=== PATIENT | female | born 1990 | race Two or more races ===

== ENCOUNTER 2018-03-26 16:09 | Emergency (ER) | payer MEDICAID ==
--- NOTE | 2018-03-26 16:38 | EDPHY ---
H & P Stated Complaint: left knee hematoma from fall 1 month ago, started bleeding today Time Seen by Provider: 03/26/18 16:37 - Personal History LMP (Females 10-55): 15-21 Days Ago Current Tetanus/Diphtheria Vaccine: Unsure Current Tetanus Diphtheria and Acellular Pertussis (TDAP): Unsure - Medical/Surgical History Hx Asthma: No Hx Chronic Respiratory Disease: No Hx Diabetes: No Hx Cardiac Disease: No Hx Renal Disease: No Hx Cirrhosis: No Hx Alcoholism: No Hx HIV/AIDS: No Hx Splenectomy or Spleen Trauma: No Other PMH: brain tumor - Social History Smoking Status: Never smoked Constitutional: Initial Vital Signs Temperature (C) 36.6 C 03/26/18 16:15 Heart Rate 84 03/26/18 16:15 Respiratory Rate 18 03/26/18 16:15 Blood Pressure 128/71 H 03/26/18 16:15 O2 Sat (%) 99 03/26/18 16:15 O2 Delivery Mode Room Air Allergies/Adverse Reactions: No Known Allergies Allergy (Verified 03/26/18 16:13) Home Medications: Medication Instructions Recorded Bledsoe 5/325 (*) 03/26/18 Tetralisal 03/26/18 Medical Decision Making ED Course/Re-evaluation: CHIEF COMPLAINT: Wound on knee HISTORY OF PRESENT ILLNESS: The patient is a 27 y/o female complaining of persistent wound on her left knee. One month ago on 02/24 she fell off a ladder and injured both knees. She's had a slowly improving hematoma with overlying abrasions and puncture wound on her left knee. Yesterday the wound re-opened and has been oozing. She was evaluated at [facility] yesterday and had a knee CT, but is unsure of the results. She has been walking normally and denies other complaints. No fever. She is normally healthy and denies any prior issues with wound healing. REVIEW OF SYSTEMS: A 10 point review of systems was performed and is negative with the exception of the elements mentioned in the history of present illness. PHYSICAL EXAM: HR, BP, O2 Sat, RR. Temp noted General Appearance: Alert, well hydrated, appropriate, and non-toxic appearing. Head: Atraumatic without scalp tenderness or obvious injury Eyes: Pupils equal, round, reactive to light and accommodation, EOMI, no trauma , no injection. Nose: Atraumatic, no rhinorrhea, clear. Throat: Mucus membranes moist. Neck: Supple. Respiratory: No retractions, no distress, no wheezes, and no accessory muscle use. Lungs are clear to auscultation bilaterally. Cardiovascular: Regular rate and rhythm, no murmurs, rubs, or gallops. Good capillary refill all extremities. Gastrointestinal: Abdomen is soft, nontender, non-distended, no masses, no rebound, no guarding, no peritoneal signs. Musculoskeletal: Normal active ROM of all extremities. Dime-sized puncture wound on anteromedial left knee with some subcutaneous fat exposed. No streaking , warmth, or surrounding skin breakdown. Healing abrasions on both knees. Neurological: Alert, appropriate, and interactive. The patient has non-focal cranial nerves, motor, sensory, and cerebellar exam. Skin: No rashes, good turgor, no nodules on palpation. Past medical history: Denies Past surgical history: Denies Family history: Noncontributory Social history: Lives in [place]. Not employed. DIFFERENTIAL DIAGNOSIS: The differential diagnosis for the patient's knee injury included but was not limited to puncture wound, non-healing wound, fracture, ligamentous injury, contusion, muscular strain, and meniscus injury. MEDICAL DECISION MAKING: This is a normally healthy 27 y/o female who presents with a small puncture wound on her left knee secondary to a fall 1 month ago. There is a small amount of exposed subcutaneous fat, but this is non-suturable at this point. No evidence of infection. She most likely had a tense hematoma with small necrotic area that flaked off leading to the oozing she is seeing now. Plan for bandage and referral to wound clinic for follow up. Return precautions discussed. She is comfortable with this plan. Departure - Departure Disposition: Home, Routine, Self-Care Clinical Impression: Puncture wound Condition: Good Instructions: Puncture Wound (ED) Additional Instructions: Follow up with Wound Care Clinic on Thursday. Keep bandage clean, dry, and in place until then. Return for worsening of condition. Referrals: Megan Bonilla PA [Primary Care Provider] - As per Instructions [facility] [Clinic] - As per Instructions Report Scribed for: Donell Reeves Report Scribed by: Yadira Alvarado Date of Report: 03/26/18 Time of Report: 16:46
[2018-03-26 17:14] VITALS: BP 123/79
--- NOTE | 2018-04-08 11:57 | GCON ---
[f rep st] CONSULTATION /[id number]/MELL MTDOzzie
== END 2018-03-26 17:21 | disposition home or self-care (01) ==
DX: S81.032D Puncture wound without foreign body, left knee, subsequent encounter (principal); W11.XXXD Fall on and from ladder, subsequent encounter

== ENCOUNTER 2018-04-28 16:42 | Inpatient (IN) | payer MEDICAID ==
--- NOTE | 2018-04-28 16:55 | PDGENHP ---
History and Physical History and Physical: See wound clinic note from 04/28/2018 under different n number traumatic wound L knee fever 101 purulent drainage admit for IV abx
[2018-04-28] MEDS ORDERED: ONDANSETRON DISINTEGRATING 4 MG TAB PO PRN (16:57)
[2018-04-28] MEDS ORDERED: ONDANSETRON 4 MG/2 ML VIAL IVP PRN (16:57)
[2018-04-28] MEDS ORDERED: ACETAMINOPHEN 325 MG TAB PO PRN (16:57)
[2018-04-28] MEDS ORDERED: ceFAZolin 2 GM in NS 100 ML IV SCH (17:00)
[2018-04-28] MEDS: ceFAZolin 2 GM/DEXTROSE 100 ML IV SCH (18:21)
[2018-04-28 18:37] LABS: PLATELET COUNT 313 10^3/uL (150-400)
[2018-04-29] MEDS: IBUPROFEN 600 MG TAB PO PRN ×2 (00:40→15:18)
[2018-04-29] MEDS: ceFAZolin 2 GM/DEXTROSE 100 ML IV SCH ×3 (00:58→17:10)
--- NOTE | 2018-04-29 07:29 | PDGENHP ---
History and Physical - History of Present Illness HISTORY AND PHYSICAL FOR INPATIENT ADMISSION CHIEF COMPLAINT: Traumatic wound Left Knee HPI: 28-year-old woman who fell off a ladder and struck her knee about 1 month ago. She had a large hematoma on the area with a small opening. I enlarged the wound, and she has been using a wound VAC. She was last seen on April 23 and was given a wound vac-ation In the past 24 hours, she has developed a fever to 101 and has had purulent drainage. PAST MEDICAL HISTORY: None. PAST SURGICAL HISTORY: None. FAMILY HISTORY: Noncontributory. ALLERGIES: No known drug allergies. MEDICATIONS: Ibuprofen on occasion. REVIEW OF SYSTEMS: Ten-point review of systems negative. PHYSICAL EXAMINATION: GENERAL: Pleasant, well-nourished, well-groomed woman. HEENT: Normocephalic. No gross hearing deficits. Mucous membranes moist. Pupils equal and round. No scleral icterus. LUNGS: No increased work of breathing. CARDIAC: No peripheral edema. SKIN: She has a wound on the medial aspect of her knee that measures 1.7 x 1.5 x 1.2 cm. The overall wound size is about the same from when I last saw her. At the 12 o'clock position, it tunnels 2.3 cm, which is stable from when I saw her, 5 cm at the 5 o'clock position, which is slightly down, and it no longer tunnels at the 9 o'clock position. She does have surrounding erythema. NEURO: Grossly intact. MUSCULOSKELETAL: She does not have any difficulty with mobility. IMPRESSION AND PLAN: A 28-year-old with traumatic wound to her left knee. I will directly admit her to the hospital. We will obtain blood work. I will put her on Ancef. I will have ID see her. I did have an MRI performed on April 17, 2018, which was negative for ligamentous injury or joint space. The wound was subcutaneous. History Information - Allergies/Home Medication List Allergies/Adverse Reactions: No Known Allergies Allergy (Verified 03/26/18 16:13) Home Medications: Cetirizine [ZyrTEC 10 mg (*)] 10 mg PO DAILY PRN 04/28/18 [Last Taken 04/27/18] Ibuprofen [Motrin (*)] 200 - 400 mg PO Q6H PRN 04/28/18 [Last Taken 04/28/18 14: 00] I have personally reviewed and updated: family history, medical history, social history, surgical history - Social History Smoking Status: Never smoked Review of Systems Review of Systems: Physical Exam Physical Exam: Temp Pulse Resp BP Pulse Ox 36.6 C 72 16 101/54 L 98 04/29/18 04:25 04/29/18 04:25 04/29/18 04:25 04/29/18 04:25 04/29/18 04:25 Lab Data & Imaging Review 04/28/18 18:13 04/28/18 18:13 WBC 13.12 10^3/uL (3.80-9.50) H 04/28/18 18:13 RBC 4.71 10^6/uL (4.18-5.33) 04/28/18 18:13 Hgb 13.6 g/dL (12.6-16.3) 04/28/18 18:13 Hct 40.0 % (38.0-47.0) 04/28/18 18:13 MCV 84.9 fL (81.5-99.8) 04/28/18 18:13 MCH 28.9 pg (27.9-34.1) 04/28/18 18:13 MCHC 34.0 g/dL (32.4-36.7) 04/28/18 18:13 RDW 12.7 % (11.5-15.2) 04/28/18 18:13 Plt Count 313 10^3/uL (150-400) 04/28/18 18:13 MPV 9.4 fL (8.7-11.7) 04/28/18 18:13 Neut % (Auto) 65.7 % (39.3-74.2) 04/28/18 18:13 Lymph % (Auto) 20.2 % (15.0-45.0) 04/28/18 18:13 Lipscomb % (Auto) 11.3 % (4.5-13.0) 04/28/18 18:13 Eos % (Auto) 2.1 % (0.6-7.6) 04/28/18 18:13 Baso % (Auto) 0.5 % (0.3-1.7) 04/28/18 18:13 Nucleat RBC Rel Count 0.0 % (0.0-0.2) 04/28/18 18:13 Absolute Neuts (auto) 8.62 10^3/uL (1.70-6.50) H 04/28/18 18:13 Absolute Lymphs (auto) 2.65 10^3/uL (1.00-3.00) 04/28/18 18:13 Absolute Monos (auto) 1.48 10^3/uL (0.30-0.80) H 04/28/18 18:13 Absolute Eos (auto) 0.28 10^3/uL (0.03-0.40) 04/28/18 18:13 Absolute Basos (auto) 0.06 10^3/uL (0.02-0.10) 04/28/18 18:13 Absolute Nucleated RBC 0.00 10^3/uL (0-0.01) 04/28/18 18:13 Immature Gran % 0.2 % (0.0-1.1) 04/28/18 18:13 Immature Gran # 0.03 10^3/uL (0.00-0.10) 04/28/18 18:13 Sodium 141 mEq/L (135-145) 04/28/18 18:13 Potassium 4.2 mEq/L (3.3-5.0) 04/28/18 18:13 Chloride 106 mEq/L (97-110) 04/28/18 18:13 Carbon Dioxide 20 mEq/l (22-31) L 04/28/18 18:13 Anion Gap 15 mEq/L (8-16) 04/28/18 18:13 BUN 8 mg/dL (7-23) 04/28/18 18:13 Creatinine 0.6 mg/dL (0.6-1.0) 04/28/18 18:13 Estimated GFR > 60 04/28/18 18:13 Glucose 89 mg/dL (70-100) 04/28/18 18:13 Calcium 9.6 mg/dL (8.5-10.4) 04/28/18 18:13
--- NOTE | 2018-04-29 09:32 | PDCARPN ---
Cardiology Progress Note Chief Complaint: L knee cellulitis Assessment/Plan: Assessment: 28 y/o F no significant PMH admitted due to increasing pain and erythema after a fall off ladder about a montha go. #. L knee cellulitis culture swab sent started on Ancef wound irrigated and redressed with Aquacell strip, absorbant dressing and Ceferino wrap # SIRS mildly tachy and elevated WBC on arrival #. FEN: regular diet #. LOS: unclear awaiting ID evaluation wound still has purulent drainage Plan: 04/29/18 09:27 Subjective: Pain tolerable currently. Objective: Vital Signs (8 Hrs) Temp Pulse Resp BP Pulse Ox 04/29/18 07:33 98.4 F 77 14 102/68 98 04/29/18 04:25 98 F 72 16 101/54 L 98 Intake/Output (24 Hrs) 04/28/18 04/29/18 04/30/18 05:59 05:59 05:59 Intake Total 375 Balance 375 Intake: Oral (ml) 100 IV Intake (ml) 75 IV Infused (ml) 200 ceFAZolin 2 GM/DEXTROSE 200 100 ml @ 200 mls/hr IV Q8H [facility] Rx#:[id number] Other: Weight 75.75 kg Result Diagrams: 04/28/18 18:13 04/28/18 18:13 - Physical Exam Constitutional: healthy appearing, no apparent distress Cardiovascular: regular rate and rhythm Skin: other (L knee: medial wound warm erythema with purulent drainage) Neurologic: AAOx3 Psychiatric: cooperative, interactive Lymph, Heme, Immunologic: no lymphadenopathy ICD10 Worksheet Patient Problems: Problems Problem Status Onset Cellulitis Acute
--- NOTE | 2018-04-29 11:45 | SOAPPROG ---
SOAP Progress Note Assessment/Plan: Assessment: 28 y/o F no significant PMH admitted due to increasing pain and erythema after a fall off ladder about a montha go. #. L knee cellulitis culture swab sent started on Ancef wound irrigated and redressed with Aquacell strip, absorbant dressing and Ceferino wrap # SIRS mildly tachy and elevated WBC on arrival #. FEN: regular diet #. LOS: unclear awaiting ID evaluation wound still has purulent drainage See physical exam from Luda Medina and H/P Plan: 04/29/18 09:27 Subjective: Pain tolerable currently. Objective: Sitting in bed Plan: 04/29/18 11:42 Objective: Vital Signs Temp Pulse Resp BP Pulse Ox 36.8 C 120 H 14 120/73 95 04/29/18 11:25 04/29/18 11:25 04/29/18 11:25 04/29/18 11:25 04/29/18 11:25 Laboratory Results 04/28/18 18:13 04/28/18 18:13 04/28/18 04/29/18 04/30/18 05:59 05:59 05:59 Intake Total 375 Balance 375 ICD10 Worksheet Patient Problems: Problems Problem Status Onset Cellulitis Acute
[2018-04-29] MEDS ORDERED: CETIRIZINE 10 MG TAB PO PRN (11:46)
--- NOTE | 2018-04-29 12:09 | CPEKG ---
Heart Rate: 95 RR Interval: 632 P-R Interval: 136 QRSD Interval: 80 QT Interval: 360 QTC Interval: 453 P [place]: 48 QRS [place]: 24 T Wave [place]: -9 EKG Severity - ABNORMAL ECG - EKG Impression: SINUS RHYTHM EKG Impression: NONSPECIFIC T ABNORMALITIES, INFERIOR LEADS Electronically Signed By: Destini Mauro 29-Apr-2018 14:15:15
--- NOTE | 2018-04-29 14:06 | ASMTCMCOM ---
CM Note CM Note Notes: Spoke w/pt, she is admitted with severe left knee pain d/t an abscess. Pt fell from a ladder 2 months ago and sustained an open wound to her left knee, she developed a hematoma and subsequently needed a wound vac. Now pt has developed an abscess. Dc needs unclear, Infectious disease MD to see pt, CM w/f. Pt lives at home with her parents who help her, she is otherwise independent. DC Plan: TBD Date Signed: 04/29/2018 02:05 PM Electronically Signed By:Violeta Jones RN
--- NOTE | 2018-04-29 16:22 | PDMN ---
Medical Necessity Medical necessity: Change to IP, as of 04/29/18, per MD & MCG Systemic or Infectious Condition; los >2 mn for ongoing management of L knee cellulitis w/ tachycardia, increasing pain, erythema & purulent drainage; requiring further monitoring, ID consult, IV abx & wound care
--- NOTE | 2018-04-29 19:25 | GCON ---
[f rep st] CONSULTATION INFECTIOUS DISEASES CONSULTATION DATE OF CONSULTATION: 04/29/2018 REFERRING PHYSICIAN: Columba Seals MD REASON FOR CONSULTATION: Left knee infection. HISTORY OF PRESENT ILLNESS: The patient is a 28-year-old female without significant past medical his tory, who fell off a ladder in late February while in [place]. She describes striking her knee on the david und which was concrete with dirt and gravel also being present. She developed a large hematoma, whic h was aspirated while in [place]. She was not treated with antibiotic therapy. She returned home and subsequently was seen on 04/08/2018, by Dr. Seals [facility]. She was noted to hav e a wound on the medial aspect of her knee that tunneled several centimeters. This was treated with a wound VAC. She was seen in the [facility] on 04/23/2018, and at that point in time, her wound VAC was removed for a wound VAC holiday. In the 24 hours preceding hospital admission, the pat ient developed new onset fever and shaking chills. She also developed yellow-green purulent drainage from the knee wound with odor present. This was accompanied by development of redness around the kn ee. Based on those findings, she was admitted for further care. She has been started empirically on cefazolin. Earlier today, purulent drainage was noted from the k nee with Gram stain showing 2+ white blood cells and 1+ GPC. The patient does not have any prior his tory of skin and soft tissue infection or MRSA. She did have associated nausea with her above sympto ms. Today, she felt like her knee redness had decreased, but this afternoon has now increased again. Given the above findings, I am now asked to assist in her ongoing management. PAST MEDICAL HISTORY: Grade 2 astrocytoma during childhood. PAST SURGICAL HISTORY: Resection of astrocytoma. CURRENT MEDICATIONS: Cefazolin 2 g IV q.8 hours, Zyrtec 10 mg orally daily, Motrin as needed. ALLERGIES: No known drug allergies. SOCIAL HISTORY: The patient does not smoke. She drinks alcohol socially. No drug use history. Rec ent travel to [place] where she was in [place]. FAMILY HISTORY: Noncontributory. REVIEW OF SYSTEMS: Outside that noted in the HPI, remainder of a 10-system review is unremarkable. PHYSICAL EXAMINATION: VITAL SIGNS: Temperature 37.1, heart rate 108, respiratory rate 14, blood pre ssure 116/73, oxygen saturation 99% on room air. GENERAL: Patient is well nourished, well developed , in no acute distress. She appears nontoxic. HEENT: There is no scleral icterus, conjunctival inj ection, or conjunctival petechiae. The oropharynx is clear without lesions. Dentition is in good re pair. Mucous membranes are moist. No sinus tenderness or nasal discharge. NECK: Supple without pa lpable lymphadenopathy or thyromegaly. CHEST: Clear to auscultation bilaterally without adventitiou s sounds. Respiratory effort is normal. CARDIOVASCULAR: Tachycardic, with a soft 2/6 systolic murm ur heard throughout. She notes this has been present previously. ABDOMEN: Soft, nontender, nondist ended. No palpable organomegaly. Bowel sounds are present. MUSCULOSKELETAL: Left knee is swollen with erythema present over approximately 2/3 of the knee primarily in the medial location; medial inc ision shows purulent drainage which is brown in color; warmth and tenderness are present. SKIN: See musculoskeletal. No rashes noted. No stigmata of endocarditis. Skin is warm and dry to touch. NE UROLOGIC: The patient is alert and interacts appropriately with examiner. Cranial nerves 2-12 are g rossly intact. Sensation is grossly intact. Muscle tone and bulk are normal. LYMPHATICS: No cervi naresh or supraclavicular nodes. No pain in left inguinal lymphatic distribution. LABORATORY DATA: White blood cell count 13.1, hematocrit 40.0, platelets 313, neutrophils 66%, lymph ocytes 20%, creatinine 0.6. IMPRESSION: Left knee soft tissue infection after traumatic hematoma resulting from fall: The patie nt has persistent cellulitis and purulent drainage from her medial wound. This is concerning that ma y require incision and drainage. Most likely, this will be due to beta-hemolytic streptococci or Sta phylococcus aureus. No history of methicillin-resistant Staphylococcus aureus making this less likel y, although still does remain possible. I have discussed potential incision and drainage with Dr. Tyler alonso and she notes that this is in a complex location given proximity of joint. RECOMMENDATIONS: 1. Agree with Ancef 2 g IV q.8 hours. 2. Follow clinical response to above measures. 3. Reassess tomorrow for ongoing purulent drainage and potential need for surgical intervention. Thank you for this consultation. We will continue to follow the patient with you. /[id number]/MODL
[2018-04-30] MEDS: ceFAZolin 2 GM/DEXTROSE 100 ML IV SCH ×3 (00:32→16:00)
[2018-04-30 06:04] LABS: PLATELET COUNT 305 10^3/uL (150-400)
--- NOTE | 2018-04-30 07:33 | SOAPPROG ---
SOAP Progress Note Assessment/Plan: Assessment: 28 y/o F no significant PMH admitted due to increasing pain and erythema after a fall off ladder about a month ago. #. L knee cellulitis culture swab sent - GPC Ancef 2 g q 8 hours Continued drainage, will explore in OR and place veraflo vac absorbant dressing and Ceferino wrap # SIRS mildly tachy and elevated WBC on arrival #. FEN: NPO for now #. LOS: unclear awaiting ID evaluation wound still has purulent drainage Plan: 04/29/18 09:27 Subjective: Pain tolerable currently. Still drains more with ambulation Objective: Sitting in bed CTAB Regular rate Purulent drainage left knee Plan: 04/29/18 11:42 04/30/18 07:31 Objective: Vital Signs Temp Pulse Resp BP Pulse Ox 36.8 C 84 12 101/75 94 04/29/18 22:56 04/29/18 22:56 04/29/18 22:56 04/29/18 22:56 04/29/18 22:56 Microbiology 04/29/18 09:31 Gram Stain - Final Knee - Swab Laboratory Results 04/30/18 04:16 04/28/18 18:13 04/29/18 04/30/18 05/01/18 05:59 05:59 05:59 Intake Total 375 350 Balance 375 350 ICD10 Worksheet Patient Problems: Problems Problem Status Onset Cellulitis Acute
[2018-04-30] MEDS ORDERED: BUPIVACAINE 0.5% 30 ML SDV ONE ×2 (09:17→10:08)
[2018-04-30] MEDS ORDERED: EPINEPHrine 1 MG/ML INJ ONE ×2 (09:17→10:08)
--- NOTE | 2018-04-30 09:32 | PDANEPAE ---
ANE History of Present Illness left knee I&D ANE Past Medical History - Cardiovascular History Hx Hypertension: No Hx Arrhythmias: No Hx Chest Pain: No Hx Coronary Artery / Peripheral Vascular Disease: No Hx CHF / Valvular Disease: No Hx Palpitations: No - Pulmonary History Hx COPD: No Hx Asthma/Reactive Airway Disease: No Hx Recent Upper Respiratory Infection: No Hx Oxygen in Use at Home: No Hx Sleep Apnea: No Sleep Apnea Screening Result - Last Documented: Negative - Endocrine History Hx Diabetes: No Hypothyroid: No Hyperthyroid: No Obesity: no - Chronic Pain History Chronic Pain: Yes ANE Review of Systems Review of systems is: negative Review of Systems: ANE Patient History - Allergies Allergies/Adverse Reactions: No Known Allergies Allergy (Verified 03/26/18 16:13) - Home Medications Home medications: home medication list seen and reviewed Home Medications: Cetirizine [ZyrTEC 10 mg (*)] 10 mg PO DAILY PRN 04/28/18 [Last Taken 04/27/18] Ibuprofen [Motrin (*)] 200 - 400 mg PO Q6H PRN 04/28/18 [Last Taken 04/28/18 14: 00] - NPO status NPO Since - Liquids (Date): 04/29/18 NPO Since - Liquids (Time): 19:00 NPO Since - Solids (Date): 04/29/18 NPO Since - Solids (Time): 19:00 - Anes Hx Anes Hx: no prior problems - Smoking Hx Smoking Status: Never smoked ANE Labs/Vital Signs - Labs Result Diagrams: 04/30/18 04:16 04/28/18 18:13 - Vital Signs Blood Pressure: 110/65 Heart Rate: 84 Respiratory Rate: 12 O2 Sat (%): 94 Height: 160.02 cm Weight: 75.75 kg ANE Physical Exam - Airway Neck exam: FROM Mallampati Score: Class 2 Mouth exam: normal dental/mouth exam - Pulmonary Pulmonary: no respiratory distress - Cardiovascular Cardiovascular: regular rate and rhythym - ASA Status ASA Status: I ANE Anesthesia Plan Anesthesia Plan: GA w LMA
[2018-04-30] MEDS ORDERED: fentaNYL 100 MCG/2 ML INJ ONE ×2 (09:37→10:12)
[2018-04-30] MEDS ORDERED: PROPOFOL 200 MG/20 ML VIAL ONE (09:37)
[2018-04-30] MEDS ORDERED: LIDOCAINE 2% 2 ML INJ ONE ×2 (09:38→09:39)
[2018-04-30] MEDS ORDERED: DEXAMETHASONE 4 MG/ML VIAL ONE (09:41)
[2018-04-30] MEDS ORDERED: ONDANSETRON 4 MG/2 ML VIAL ONE (09:41)
[2018-04-30] MEDS ORDERED: KETOROLAC 30 MG/1 ML SDV ONE (09:41)
[2018-04-30] MEDS ORDERED: MIDAZOLAM 2 MG/2 ML VIAL IVP ONE (09:42)
[2018-04-30] MEDS ORDERED: HYDROmorphONE/DILAUDID 1 MG/ML INJ IVP PRN (10:21)
[2018-04-30] MEDS ORDERED: NALOXONE HCL 0.4 MG/ML INJ IVP PRN (10:21)
[2018-04-30] MEDS ORDERED: LR 500 ML IV PRN (10:21)
[2018-04-30] MEDS ORDERED: fentaNYL 100 MCG/2 ML INJ IVP PRN (10:21)
[2018-04-30] MEDS ORDERED: PROMETHAZINE HCL 25 MG/ML INJ IVP PRN (10:21)
[2018-04-30] MEDS ORDERED: ALBUTEROL 3 ML DEYVIAL IH PRN (10:21)
[2018-04-30] MEDS ORDERED: oxyCODONE IR 5 MG TAB PO PRN (10:21)
[2018-04-30] MEDS ORDERED: ONDANSETRON 4 MG/2 ML VIAL IVP PRN (10:21)
[2018-04-30] MEDS ORDERED: HYDROCODONE/APAP 5/325 TAB PO PRN ×2 (10:21→10:37)
[2018-04-30] MEDS ORDERED: ACETAMINOPHEN 500 MG TAB PO PRN (10:21)
[2018-04-30] MEDS ORDERED: METOCLOPRAMIDE 10 MG/2 ML VIAL IVP PRN (10:21)
--- NOTE | 2018-04-30 10:22 | POSTANESTH ---
Post Anesthetic Evaluation Cardiovascular Status: Normal, Stable Respiratory Status: Normal, Stable Level of Consciousness/Mental Status: Can Participate in Eval Pain Control: Adequate, Prn Tx Ordered Nausea/Vomiting Control: Adequate, Prn Tx Ordered Complications Possibly Related to Anesthesia: None Noted
--- NOTE | 2018-04-30 10:41 | POSTOPPROG ---
Post Op Note Date of Operation: 04/30/18 Surgeon: Columba Seals Anesthesiologist: olya Anesthesia: GET(General Endotracheal) Pre-op Diagnosis: traumatic wound L knee Post-op Diagnosis: same Indication: 28 yo with traumatic injury l knee Procedure: debride skin soft tissue and wound vac Findings: 9x2x1.7cm Inf/Abcess present in the surg proc area at time of surgery?: Yes Depth: Superfical (Skin SQ) EBL: Minimal Specimen(s): none
--- NOTE | 2018-04-30 10:57 | GOP ---
[f rep st] OPERATIVE REPORT DATE OF OPERATION: 04/29/2018 SURGEON: Columba Seals MD ANESTHESIA: General. ANESTHESIOLOGIST: Gabe Rivera MD PREOPERATIVE DIAGNOSIS: Traumatic left knee wound. POSTOPERATIVE DIAGNOSIS: Traumatic left knee wound. PROCEDURE PERFORMED: Debridement skin soft tissue to the level of subcutaneous tissue with Misonix, and application of wound VAC. FINDINGS: Wound measures 9 x 2 x 1.7 cm. SPECIMENS: None. ESTIMATED BLOOD LOSS: 5 cc. INDICATIONS: Patient is a 28-year-old who fell off a ladder and had a traumatic hematoma to her knee . She was using wound VAC therapy, but then developed fevers and had purulent drainage from the site . DESCRIPTION OF PROCEDURE: Patient was brought into the operating room, placed supine on the table, a nd general anesthesia was administered. Her knee was prepped and draped in the usual sterile fashion . I infiltrated the area with 20 cc of 0.25% Marcaine. I enlarged the incision to fully explore the wound. There was bioburden throughout the wound, but no discrete abscess. I used Misonix to debrid e the wound. It measured 9 x 2 x 1.7. Hemostasis was achieved. I placed VeraFlo wound VAC with Vas he solution. She was awakened in the operating room, extubated, transferred to PACU in stable condit ion. /[id number]/MODL
--- NOTE | 2018-04-30 12:09 | PCMIDPN ---
Assessment/Plan: Assessment/Plan: * Left knee cellulitis/wound infection after traumatic injury: Patient now status post incision and drainage with no abscess noted intraoperatively but bioburden present throughout wound bed. Culture showing growth of beta- hemolytic Streptococcus not further identified to date. Continue cefazolin pending additional culture data. Follow clinical course post debridement. 04/30/18 12:06 Subjective: Patient status post debridement of wound earlier today. Operative findings reviewed. Objective: Vital Signs Temp Pulse Resp BP Pulse Ox 36.8 C 80 16 113/77 96 04/30/18 11:37 04/30/18 11:37 04/30/18 11:37 04/30/18 11:37 04/30/18 11:37 Microbiology 04/29/18 09:31 Gram Stain - Final Knee - Swab Laboratory Results 04/30/18 04:16 04/28/18 18:13 04/29/18 04/30/18 05/01/18 05:59 05:59 05:59 Intake Total 375 350 620 Output Total 5 Balance 375 350 615 Cefazolin # 2 Knee culture with growth of beta-hemolytic Streptococcus - Physical Exam General Appearance: alert, no apparent distress EENT: No scleral icterus, No thrush, No conjunctival petechiae Respiratory: lungs clear, No respiratory distress Cardiac/Chest: regular rate, rhythm, systolic murmur (2/6 throughout) Extremities: inflammation (Wound VAC in place over left knee; no surrounding erythema) ICD10 Worksheet Patient Problems: Problems Problem Status Onset Cellulitis Acute
[2018-04-30] MEDS: IBUPROFEN 600 MG TAB PO PRN (16:01)
--- NOTE | 2018-04-30 16:23 | ASMTCMCOM ---
CM Note CM Note Notes: CM met w/ pt for dispo planning. Pt was unable to recall which agency she got her previous wound vac from. It is uncertain if pt will need a wound vac at time of d/c. That is for surgery to decide. CM called [facility] and they had no record of pt having a wound vac. CM to follow. Plan: TBD Date Signed: 04/30/2018 04:22 PM Electronically Signed By:MICHELLE Cancino
[2018-05-01] MEDS: ceFAZolin 2 GM/DEXTROSE 100 ML IV SCH ×2 (01:18→09:28)
--- NOTE | 2018-05-01 08:23 | SOAPPROG ---
SOAP Progress Note Assessment/Plan: Assessment/Plan: 28 Y F recent fall from ladder with traumatic knee wound, cellulitis, s/p OR debridement and vac placement with Dr. Seals. Doing well. Asked pt to have her home wound vac brought in. Plan to supervisor policy change clerks to outpatient vac tomorrow or Thursday and then possible d/c pending antibiotic plan. D/w'ed Dr. Seals. S: walking ok. trying not to bend her knee much. thinks redness and warmth have decreased significantly. O: alert, nad ctab rrr abd soft ext knee wound with vac to suction. min erythema posterior to wound. surrounding tissue is soft, no fluctuance, negligible induration/swelling 05/01/18 08:20 Objective: Vital Signs Temp Pulse Resp BP Pulse Ox 36.8 C 71 16 100/70 98 05/01/18 07:57 05/01/18 07:57 05/01/18 07:57 05/01/18 07:57 05/01/18 07:57 Microbiology 04/29/18 09:31 Gram Stain - Final Knee - Swab Laboratory Results 04/30/18 04:16 04/28/18 18:13 04/30/18 05/01/18 05/02/18 05:59 05:59 05:59 Intake Total 350 1835 Output Total 5 Balance 350 1830 ICD10 Worksheet Patient Problems: Problems Problem Status Onset Cellulitis Acute
[2018-05-01] MEDS: IBUPROFEN 600 MG TAB PO PRN ×2 (10:27→18:22)
--- NOTE | 2018-05-01 11:19 | PCMIDPN ---
Assessment/Plan: Assessment/Plan: * Left knee cellulitis/wound infection after traumatic injury: Continued clinical improvement post incision and drainage. No visible cellulitis around wound VAC margins. Culture show growth of group A Streptococcus. Will transition cefazolin to ceftriaxone once daily (favor this over penicillin as her IVs have been tenuous and penicillin with tendency to be challenging with peripheral access). Do not anticipate use of IV antibiotics after hospital discharge as she should be able to transition to oral antibiotics to complete course of therapy. 05/01/18 11:15 Subjective: Patient complains of knee pain after veroflow turned off wound VAC. No rash or diarrhea. Objective: Vital Signs Temp Pulse Resp BP Pulse Ox 36.8 C 71 16 100/70 98 05/01/18 07:57 05/01/18 07:57 05/01/18 07:57 05/01/18 07:57 05/01/18 07:57 Microbiology 04/29/18 09:31 Gram Stain - Final Knee - Swab Wound Culture - Final Streptococcus Pyogenes Grp A Laboratory Results 04/30/18 04:16 04/28/18 18:13 04/30/18 05/01/18 05/02/18 05:59 05:59 05:59 Intake Total 350 1835 Output Total 5 Balance 350 1830 Cefazolin # 3 Knee cultures group A Streptococcus - Physical Exam General Appearance: alert, no apparent distress EENT: No scleral icterus, No thrush Cardiac/Chest: regular rate, rhythm, systolic murmur Extremities: inflammation (Left knee with wound VAC in place; no surrounding cellulitis; no knee effusion; no pain with range of motion of knee) Abdomen: non-tender, No distended ICD10 Worksheet Patient Problems: Problems Problem Status Onset Cellulitis Acute
--- NOTE | 2018-05-01 15:42 | ASMTCMCOM ---
BHASKAR Note BHASKAR Note Notes: The current d/c plan is for pt to change from our wound vac to her own. She is currently on IV ABX and will hopefully transition to po ABX. CM will continue to follow. Date Signed: 05/01/2018 03:41 PM Electronically Signed By:ESTEBAN Graves
--- NOTE | 2018-05-02 10:06 | SOAPPROG ---
SOAP Progress Note Assessment/Plan: Assessment/Plan: 28 Y F recent fall from ladder with traumatic knee wound, cellulitis, s/p OR debridement and vac placement with Dr. Seals. Continues to improve. Erythema less today, surrounding skin is soft, less warm. +afebrile. Appreciate ID input--plan for PO abx upon d/c. Patient's family is bringing in outpatient wound vac. Possible d/c later today if vac can be changed. Otherwise, d/c in am. Of note, patient has an appt scheduled at wound healing clinic for tomorrow, Thursday. This will probably be cancelled if vac changed tomorrow in house. S: No complaints. Thinks her knee is getting better. O: alert, nad ctab rrr abd soft ext knee wound with vac to suction. less erythema posterior to wound. surrounding tissue is soft, no fluctuance, negligible induration/swelling 05/02/18 10:03 Objective: Vital Signs Temp Pulse Resp BP Pulse Ox 36.9 C 66 16 91/59 L 95 05/02/18 07:48 05/02/18 07:48 05/02/18 07:48 05/02/18 07:48 05/02/18 07:48 Microbiology 04/29/18 09:31 Gram Stain - Final Knee - Swab Wound Culture - Final Streptococcus Pyogenes Grp A Laboratory Results 04/30/18 04:16 04/28/18 18:13 05/01/18 05/02/18 05/03/18 05:59 05:59 05:59 Intake Total 1832 2375 Output Total 5 Balance 1830 2375 ICD10 Worksheet Patient Problems: Problems Problem Status Onset Cellulitis Acute
[2018-05-02] MEDS: IBUPROFEN 600 MG TAB PO PRN (11:57)
--- NOTE | 2018-05-02 12:31 | ASMTCMCOM ---
CM Note CM Note Notes: CM spoke with RN, we are waiting for home wound vac. which will likely will be change to patients wound vac tomorrow. RN asked the patient if she needs home care, the patient reports she goes to the wound clinic. CM to follow. Current discharge plan: Likely home independent tomorrow. Date Signed: 05/02/2018 12:31 PM Electronically Signed By:Betina Rodriguez
--- NOTE | 2018-05-02 15:58 | PCMIDPN ---
Assessment/Plan: Assessment/Plan: * Left knee cellulitis/wound infection after traumatic injury due to group a Streptococcus: Cellulitic region over right medial knee as resolve post drainage. Anticipate transition to oral antibiotic therapy at time of discharge tomorrow with amoxicillin 500 mg three times daily x7 days. Side effects of amoxicillin reviewed with patient. 05/02/18 15:56 Subjective: Patient with decreasing left knee pain. Likely discharge home tomorrow after wound VAC change. Objective: Vital Signs Temp Pulse Resp BP Pulse Ox 36.9 C 73 16 111/56 L 97 05/02/18 15:15 05/02/18 15:15 05/02/18 15:15 05/02/18 15:15 05/02/18 15:15 Laboratory Results 04/30/18 04:16 04/28/18 18:13 05/01/18 05/02/18 05/03/18 05:59 05:59 05:59 Intake Total 1835 2375 450 Output Total 5 Balance 1830 2375 450 Ceftriaxone # 2, antibiotics # 4 Wound culture with growth of group A Streptococcus - Physical Exam General Appearance: alert, no apparent distress Extremities: inflammation (Left knee with resolution of cellulitis with mild tenderness inferomedially without palpable fluctuance) ICD10 Worksheet Patient Problems: Problems Problem Status Onset Cellulitis Acute
[2018-05-03 08:57] VITALS: BP 104/70
[2018-05-03] MEDS: IBUPROFEN 600 MG TAB PO PRN (09:32)
--- NOTE | 2018-05-03 11:19 | GDS ---
[f rep st] DISCHARGE SUMMARY DISCHARGE DIAGNOSIS: Traumatic left knee wound. PROCEDURES: Debridement skin, soft tissue to the level of subcutaneous tissue with Misonix and appli cation of wound VAC. INTRAOPERATIVE FINDINGS: Wound measured 9 x 2 x 1.7 cm. CONSULTATIONS: Dr. Chan Rossi, Infectious Disease. HOSPITAL COURSE: The patient is a 28-year-old female who fell from a ladder and sustained a traumati c knee wound. It became infected and so she was admitted to the hospital and underwent operative scott ridement with Dr. Seals. A wound VAC was placed. The procedure was uncomplicated, and she tolerated it well. Infectious Disease was consulted. She was treated with IV ceftriaxone. Erythema, warmth and indurat ion all improved. The patient's wound VAC was changed in transition to the patient's outpatient wound VAC, which was br ought in from home by her family. She was discharged to home in stable condition with her wound VAC and plans [facility]. Her IV antibiotics were discontinued and she w as given a prescription for amoxicillin 500 mg three times daily for 1 week. She was also given a pr escription for [place] and instructed to use ibuprofen as well. /[id number]/MODL
--- NOTE | 2018-05-03 13:36 | WOCRNPDOC ---
WOCRN Advanced Assessment Note - Skin Integrity Problem, Advanced Assess Left Medial Knee Dressing Type: Wound Vac Dressing Description: Clean/Dry, Intact Exudate Amount: Minimal Exudate Color: Reddish/Yellow Exudate Characteristic(s): Serosanguinous Integumentary Issue Intervention: Dressing Changed Anisa Wound Tissue: Blanching Wound Bed Constitution: Granulation Tissue (100%), Undermining (3-5 o'clock, 1.5cm) Site Measurement - Head-to-Toe Length X Width X Depth (cm): 9x3.4x1.2 Skin Integrity Problem Comment: Patient given PO pain meds 45 minutes prior. Wound vac with Veraflo dressing removed. Skin prep applied periwound and windowpaned with drape. One piece of black granufoam applied to wound bed that had been cut in half widthwise with a larger piece of black foam placed on top for track pad placement. Draped and trackpad applied. NPWT achieved at -125mmHg continuous on home vac for patient discharge. Patient tolerated well with minimal pain.
== END 2018-05-03 13:40 | disposition home or self-care (01) | DRG 383 ==
LOC: F3E 16:54 → OBSVTOIN 04-29 16:05
PROVIDERS: ADMIT Surgery; ATTEND Surgery
PROC: 0JDM3ZZ Extraction of Left Upper Leg Subcutaneous Tissue and Fascia, Percutaneous Approach (ICD-10-PCS; principal; 2018-04-29)
DX: L03.116 Cellulitis of left lower limb (principal); B95.5 Unspecified streptococcus as the cause of diseases classified elsewhere; S81.03 Puncture wound without foreign body of knee; W11.XXXD Fall on and from ladder, subsequent encounter
CPT/HCPCS: G0378; G0379; J0171; J0690; J0696; J1100; J1885; J2250; J2405; J2704; J3010